=== PATIENT | female | born 1990 | race African-American/Black ===

== ENCOUNTER 2018-04-30 00:47 | Emergency (ER) | payer OTHER, SELFPAY ==
[2018-04-30] MEDS: ONDANSETRON 4 MG ORAL DISINTEGRATING TAB (Q0162 PER 1MG) PO (01:57)
[2018-04-30] MEDS: IBUPROFEN 800 MG TAB PO (01:58)
[2018-04-30] MEDS: DERMABOND TOPICAL SKIN ADHESIVE TOP (01:59)
[2018-04-30] MEDS: ADACEL/BOOSTRIX VACCINE (DIPHTH/PERTUSS/ACELL/TETANUS)0.5ML SYR (90715) IM (02:30)
== END 2018-04-30 02:43 | disposition home or self-care (01) ==
LOC: M ED 00:47
DX: S01.80XA Unspecified open wound of other part of head, initial encounter (principal); S60.229A Contusion of unspecified hand, initial encounter; S50.10XA Contusion of unspecified forearm, initial encounter; Y04.0XXA Assault by unarmed brawl or fight, initial encounter
CPT/HCPCS: 90715

== ENCOUNTER 2018-10-13 12:20 | Emergency (ER) | payer OTHER ==
[~2018-10-13] VITALS: Ht 172.7 cm; Wt 107.1 kg
[~2018-10-13 12:20] MED LIST: IBUP80TA PO; ZOFR4TAB14 PO
[2018-10-13] MEDS ORDERED: diphenhydrAMINE INJ 50MG/ML VIAL (J1200) IV ONE (15:45)
[2018-10-13] MEDS ORDERED: NS 1,000 ML IV ONE (15:45)
[2018-10-13] MEDS ORDERED: KETOROLAC 30 MG/ML VIAL (J1885) IV ONE (15:45)
[2018-10-13] MEDS ORDERED: METOCLOPRAMIDE INJ 10MG/2ML VIAL (J2765) IV ONE (15:45)
[2018-10-13 16:30] LABS: BASO # 0.1 10^3/uL (0.0-0.2); BASO % 0.6 % (0.0-1.0); EOS # 0.2 10^3/uL (0.0-0.50); EOS % 1.9 % (0.0-3.0); HEMATOCRIT 41.7 % (36.0-47.0); HEMOGLOBIN 14.4 g/dl (12.0-15.5); LYMPH % 37.9 % (24.0-44.0); MEAN CORPUSCULAR HEMOGLOBIN 30.3 pg (27.0-33.0); MEAN CORPUSCULAR HGB CONC 34.5 g/dl (32.0-36.5); MEAN CORPUSCULAR VOLUME 87.6 fl (80.0-96.0); MONO # 0.9 10^3/uL (0.0-0.8); MONO % 11.4 % (0.0-5.0); NEUTROPHILS # 3.8 10^3/uL (1.8-7.7); NEUTROPHILS % 47.9 % (36.0-66.0); PLATELET COUNT, AUTOMATED 331 10^3/uL (150-450); RED BLOOD COUNT 4.76 10^6/uL (4.00-5.40); WHITE BLOOD COUNT 7.8 10^3/uL (4.0-10.0)
--- NOTE | 2018-10-13 17:02 | REP ---
CT Head without contrast HISTORY: Syncope COMPARISON: None There is no intraparenchymal hemorrhage, acute infarct, mass or midline shift. The ventricular system is normal in appearance. There is no extra cerebral collection. There is no fracture. The visualized sinuses are clear. IMPRESSION: There is no intracranial lesion. Electronically Signed by Del Sauer MD 10/13/2018 04:54 P
[2018-10-13 17:03] LABS: BLOOD UREA NITROGEN 10 MG/DL (7-18); CALCIUM LEVEL 9.4 MG/DL (8.5-10.1); CARBON DIOXIDE LEVEL 29 MEQ/L (21-32); CHLORIDE LEVEL 105 MEQ/L (98-107); CREATININE FOR GFR 0.77 MG/DL (0.55-1.30); FREE T4 1.14 NG/DL (0.76-1.46); GLOMERULAR FILTRATION RATE > 60.0 (>60); GLUCOSE, FASTING 85 MG/DL (70-100); MAGNESIUM LEVEL 2.1 MG/DL (1.8-2.4); POTASSIUM SERUM 4.2 MEQ/L (3.5-5.1); SODIUM LEVEL 141 MEQ/L (136-145)
[2018-10-13] MEDS ORDERED: LIDOCAINE 2% MDV 20 ML VIAL SC ONE (17:30)
[2018-10-13] MEDS ORDERED: SUMAtriptan SUCCINATE 6 MG/0.5 ML VIAL SC ONE (17:30)
[2018-10-13] MEDS ORDERED: dexameTHASONE 4 MG/ML 1ML VIAL (J1100) IV ONE (18:30)
[2018-10-13 18:35] VITALS: BP 104/52
[2018-10-13] MEDS ORDERED: CLEO300C2 PO (19:13)
[2018-10-13] MEDS ORDERED: CLINDAMYCIN 150 MG CAP PO ONE (19:30)
== END 2018-10-13 19:35 | disposition home or self-care (01) ==
LOC: M ED 12:20
DX: G43.909 Migraine, unspecified, not intractable, without status migrainosus (principal); L02.411 Cutaneous abscess of right axilla; F12.10 Cannabis abuse, uncomplicated
CPT/HCPCS: 10060; 70450; 80048; 83735; 84439; 84443; 84702; 85025; 96361; 96374; 96375; 99284; J1100; J1200; J1885; J2765